=== PATIENT | male | born 1965 | race Caucasian/White ===

== ENCOUNTER 2020-04-29 22:41 | Inpatient (IN) | payer OTHER ==
[~2020-04-29] VITALS: Ht 190.5 cm; Wt 95.3 kg
--- NOTE | ~2020-04-29 | EKG ---
[facility] [place] [address] ELECTROCARDIOGRAM REPORT Name: GIOVANNY QUEEN Room #: 170-9 ADM IN M.R.#: [id number] Admission: 04/30/20 Attend Phys: Fish Cruz MD Discharge: Date of : 61 Report #: [id number] THIS REPORT FOR: cc: Kristi Leon MD, Michelle R. 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: : 1965 Requested By: Gonzales Lindsey Order Number: [id number] MD: Measurements Intervals [place] Rate: 66 P: 4 LA: 161 QRS: -60 QRSD: 114 T: 46 QT: 435 QTc: 456 Interpretive Statements Sinus rhythm Ventricular premature complex Incomplete RBBB and LAFB Compared to ECG 04/29/2020 23:46:43 Ventricular premature complex(es) now present Incomplete right bundle-branch block now present Atrial flutter no longer present AV block, advanced (high-grade) no longer present [email or web address] By: 0325 Epiphany Epiphany, /SIMEON
[2020-04-29 22:46] VITALS: BP 140/94
[2020-04-29] MEDS ORDERED: ASA81BEC PO (22:54)
[2020-04-29] MEDS ORDERED: POTASSIUM99 M1 PO (22:55)
[2020-04-29] MEDS ORDERED: GLUCOSAMIN-CHO1 EACH PO (22:55)
[2020-04-29] MEDS ORDERED: MONOCAPS TABLE1 EACH PO (22:55)
[2020-04-29] MEDS ORDERED: FIBER0.4 GM PO (22:56)
[2020-04-29 23:19] LABS: ANION GAP 8 mmol/L (7-16); BUN 22 mg/dL (7-18); CALCIUM 8.9 mg/dL (8.5-10.1); CHLORIDE 107 mmol/L (98-107); CO2 29 mmol/L (21-32); CREATININE 1.6 mg/dL (0.7-1.3); GLUCOSE 89 mg/dL (74-106); POTASSIUM 3.8 mmol/L (3.5-5.1); SODIUM 144 mmol/L (136-145)
[2020-04-29 23:21] LABS: ABSOLUTE NEUTROPHILS 4.6 thou/uL (1.4-8.2); BASOPHILS 0.9 % (0.0-2.0); EOSINOPHILS 5.3 % (0.0-3.0); HEMATOCRIT 43.2 % (42.0-52.0); HEMOGLOBIN 14.7 gm/dL (14.0-18.0); LYMPHOCYTES 22.8 % (24.0-44.0); MCH 30.8 pg (26.0-34.0); MCV 90.7 fL (80.0-100.0); MONOCYTES 11.1 % (1.0-8.0); PLATELET COUNT 239 thou/uL (150-400); POLYS 59.9 % (36.0-66.0); RBC 4.77 mil/uL (4.50-6.00); RDW 13.4 % (10.5-14.5); WBC 7.7 thou/uL (4.0-11.0)
[2020-04-29 23:34] LABS: ALBUMIN 3.9 g/dL (3.4-5.0); MAGNESIUM 2.2 mg/dL (1.8-2.4); SGOT 36 U/L (15-37); SGPT 38 U/L (30-65); TOTAL PROTEIN 7.5 g/dL (6.4-8.2); TROPONIN-I <0.06 ng/mL (<0.06)
--- NOTE | 2020-04-30 00:10 | NUR ---
patria request call when transfers to floor. [phone]
[2020-04-30 00:45] LABS: AMP/METHAMP Negative (Negative); BARBITURATES Negative (Negative); BENZODIAZEPINES Negative (Negative); COCAINE Negative (Negative); METHADONE Negative (Negative); OPIATES Negative (Negative); PCP Negative (Negative)
[2020-04-30 07:27] VITALS: BP 118/83
[2020-04-30 15:46] VITALS: BP 127/78
[2020-04-30 16:29] VITALS: BP 124/72
[2020-04-30 16:30] VITALS: BP 124/72
--- NOTE | 2020-04-30 18:50 | NUR ---
PT CARE ASSUMED AT 1630. ASSESSMENTS CHARTED. MEDICATION CHARTED. PT IS SR IN THE 70'S. PT TOOK SHOWER AND IS NOW RESTING COMFORTABLEY. VSS. DENIES PAIN.
[2020-04-30 20:30] VITALS: BP 138/95
[2020-05-01 00:28] LABS: HEMATOCRIT 40.1 % (42.0-52.0); HEMOGLOBIN 13.6 gm/dL (14.0-18.0); MCH 31.1 pg (26.0-34.0); MCHC 33.8 g/dL (28.0-37.0); MCV 91.8 fL (80.0-100.0); RBC 4.37 mil/uL (4.50-6.00); RDW 13.6 % (10.5-14.5); WBC 5.5 thou/uL (4.0-11.0)
[2020-05-01 00:32] VITALS: BP 126/77
[2020-05-01 00:47] LABS: ANION GAP 4 mmol/L (7-16); BUN 19 mg/dL (7-18); CALCIUM 8.2 mg/dL (8.5-10.1); CHLORIDE 106 mmol/L (98-107); CO2 30 mmol/L (21-32); CREATININE 1.3 mg/dL (0.7-1.3); GLUCOSE 100 mg/dL (74-106); POTASSIUM 3.8 mmol/L (3.5-5.1); SODIUM 140 mmol/L (136-145); TROPONIN-I <0.06 ng/mL (<0.06)
[2020-05-01 03:16] VITALS: BP 118/85
--- NOTE | 2020-05-01 04:00 | NUR ---
Assumed pt care at 1900. Pt is alert and oriented with no sign of distress noted in pt. Denies any pain.Pt presented with AFIB but converted to NSR and has been stable and been in NSR, SB noted on the monitor. Pt is stable, ambulatory, denies any pain. Assessment completed and documented. Scheduled meds administered to pt. Continue to monitor. No further needs at this time. Continue to monitor.
[2020-05-01 08:00] VITALS: BP 125/87
--- NOTE | 2020-05-01 08:54 | EKG ---
[facility] [place] [address] ELECTROCARDIOGRAM REPORT Name: GIOVANNY QUEEN Room #: 213-P ADM IN M.R.#: [id number] Admission: 04/30/20 Attend Phys: Dominique Pacheco Discharge: Date of : 61 Report #: [id number] THIS REPORT FOR: cc: Kristi Leon MD, Michelle R. MD Lundgren,Shant Branch MD 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 05/01/20 0854 [id number] Shant Noble MD, [facility] /EPI
--- NOTE | 2020-05-01 08:55 | EKG ---
[facility] [place] [address] ELECTROCARDIOGRAM REPORT Name: GIOVANNY QUEEN Room #: 213-P ADM IN M.R.#: [id number] Admission: 04/30/20 Attend Phys: Dominique Pacheco Discharge: Date of : 61 Report #: [id number] THIS REPORT FOR: cc: Kristi Leon MD, Michelle R. 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1965 Requested By: Gonzales Lindsey Order Number: [id number] MD: Shant Noble Measurements Intervals [place] Rate: 68 P: [place]: QRS: -61 QRSD: 121 T: 43 QT: 385 QTc: 410 Interpretive Statements Atrial flutter with predominant 4:1 AV block RBBB and LAFB Compared to ECG 04/29/2020 22:47:40 No significant change was found Electronically Signed On 05-01-2020 8:55:20 CDT by Shant Noble [email or web address] <ELECTRONICALLY SIGNED> By: Shant Noble MD, [facility] 05/01/20 [id number] [id number] Shant Noble MD, [facility] /EPI
--- NOTE | 2020-05-01 08:57 | EKG ---
[facility] [place] [address] ELECTROCARDIOGRAM REPORT Name: GIOVANNY QUEEN Room #: 213-P ADM IN M.R.#: [id number] Admission: 04/30/20 Attend Phys: Dominique Pacheco Discharge: Date of : 61 Report #: [id number] THIS REPORT FOR: cc: Kristi Leon MD, Michelle R. MD Lundgren,Shant Branch MD [facility] ~ THIS REPORT FOR: //name// 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 05/01/20 0857 [id number] 0325 Shant Noble MD, [facility] /EPI
[2020-05-01] MEDS ORDERED: METOPROLOL SUCC25 M1 PO (09:39)
--- NOTE | 2020-05-01 10:53 | 2DMMODE ---
[facility] [address] [place] [address] 2 D/M-MODE ECHOCARDIOGRAM Name: GIOVANNY QUEEN Room #: 213-P ADM IN M.R.#: [id number] Admission: 04/30/20 Attend Phys: Dominique Pacheco Discharge: Date of : 61 Report #: [id number] THIS REPORT FOR: cc: Kristi Leon MD, Michelle R. MD Lammoglia, Francisco J. MD ~ APPROVED REPORT Study performed: 05/01/2020 08:43:55 EXAM: Comprehensive 2D, Doppler, and color-flow Echocardiogram Patient Location: Bedside Room #: 213 Status: routine BSA: 2.24 HR: 56 bpm BP: 118/85 mmHg Rhythm: Bradycardia Other Information Study Quality: Good Indications Atrial Fibrillation Hypertension/HDD 2D Dimensions RVDd: 36.24 mm IVSd: 8.50 (7-11mm) LVOT Diam: 23.32 (18-24mm) LVDd: 60.94 mm PWd: 7.74 (7-11mm) Ascending Ao: 35.07 (22-36mm) LVDs: 48.83 (25-40mm) Aortic Root: 33.99 mm IVC: 26.00 mm Volumes Left Atrial Volume (Systole) Single Plane 4CH: 91.88 mL Single Plane 2CH: 92.25 mL LA ESV Index: 46.00 mL/m2 Aortic Valve AoV Peak Kong.: 1.02 m/s AO Peak Gr.: 4.14 mmHg LVOT Max P.04 mmHg LVOT Max V: 0.71 m/s RAPHAEL Vmax: 3.00 cm2 [facility] [address] [place] [address] 2 D/M-MODE ECHOCARDIOGRAM Name: GIOVANNY QUEEN Room #: 213-P [facility] IN ..#: [id number] Admission: 04/30/20 Attend Phys: Dominique Lewis Discharge: Date of : 61 Report #: [id number] Mitral Valve E/A Ratio: 0.6 MV Decel. Time: 638.42 ms MV E Max Kong.: 0.31 m/s MV A Kong.: 0.55 m/s MV PHT: 185.14 ms IVRT: 184.54 ms Pulmonary Valve PV Peak Kong.: 0.64 m/s PV Peak Gr.: 1.64 mmHg Tricuspid Valve TR Peak Kong.: 2.38 m/s TR Peak Gr.: 22.63 mmHg PA Pressure: 33.00 mmHg Left Ventricle Left ventricle is dilated. There is global hypokinesis of the left ventricle. There is normal left ventricular wall thickness. Left ventricular systolic function is mildly decreased. LVEF is 40-45%. Grade I - abnormal relaxation pattern. Right Ventricle The right ventricle is normal size. The right ventricular systolic function is normal. Atria Left atrium is dilated. Right atrium is dilated. Aortic Valve The aortic valve is normal in structure. No aortic regurgitation is present. There is no aortic valvular stenosis. Mitral Valve The mitral valve is normal in structure. Mild mitral regurgitation. No evidence of mitral valve stenosis. Tricuspid Valve The tricuspid valve is normal in structure. There is mild tricuspid regurgitation. Estimated PAP 33 mmHg There is mild pulmonary hypertension. Pulmonic Valve The pulmonary valve is normal in structure. Trace pulmonic regurgitation. [facility] [place] [address] [place] [address] 2 D/M-MODE ECHOCARDIOGRAM Name: GIOVANNY QUEEN Room #: 213-P ADM IN M.R.#: [id number] Admission: 04/30/20 Attend Phys: Dominique Lewis Discharge: Date of : 61 Report #: [id number] Great Vessels The aortic root is normal in size. IVC is dilated and collapses >50% with inspiration. Pericardium There is no pericardial effusion. <Conclusion> Left ventricle is dilated. LVEF is 40-45%. There is global hypokinesis of the left ventricle. Left atrium is dilated. Right atrium is dilated. The aortic valve is normal in structure. The mitral valve is normal in structure. Mild mitral regurgitation. The tricuspid valve is normal in structure. There is mild tricuspid regurgitation. Estimated PAP 33 mmHg There is mild pulmonary hypertension. There is no pericardial effusion. <ELECTRONICALLY SIGNED> By: Richie Romero MD [id number] Richie Romero MD /INF
[2020-05-01 11:18] VITALS: BP 125/87
--- NOTE | 2020-05-01 11:54 | NUR ---
PT CARE ASSUMED APPROX 0700. ASSESSMENT CHARTED. PT DENIES PAIN AND SOA. VSS. NSR THIS AM. UP WITH STEADY GAIT. DISCHARGED AT THIS TIME. POST HOSPITAL EDUCATION DONE WITH PT AND DRs, REINFORCED BY THIS NURSE. PT DENIES QUESTIONS OR CONCERNS REGARDING POST HOSPITAL CARES. IV OUT, TELE OFF. PT WALKED OFF UNIT ESCORTED BY HOSPITAL STAFF A MOMENT AGO.
== END 2020-05-01 12:12 | disposition home or self-care (01) | DRG 308 ==
LOC: ER 22:41 → 2N 04-30 00:20 → EROBS 04-30 00:20 → 2N 04-30 16:30
PROVIDERS: Emergency Medicine; Nurse Practitioner Family; ADMIT Hospitalist; ATTEND Hospitalist
DX: I48.0 Paroxysmal atrial fibrillation (principal); N17.0 Acute kidney failure with tubular necrosis; I45.10 Unspecified right bundle-branch block; I44.4 Left anterior fascicular block; I34.1 Nonrheumatic mitral (valve) prolapse; M19.90 Unspecified osteoarthritis, unspecified site; G89.29 Other chronic pain; M54.9 Dorsalgia, unspecified; I10 Essential (primary) hypertension; Z79.899 Other long term (current) drug therapy; Z79.82 Long term (current) use of aspirin; Z88.0 Allergy status to penicillin
CPT/HCPCS: 10081